=== PATIENT | male | born 1960 | race Caucasian/White ===

== ENCOUNTER 2023-09-20 09:03 | Observation (INO) ==
--- NOTE | 2023-08-22 09:31 | Anesthesiology Consultation ---
Date of Service August 22, 2023 Assessment & Plan (1) Encounter for pre-operative examination: Chart Review Chart Review: Acceptable Risk for Surgery and Patient seen in Pre Admission Testing Teaching & Discussion Pre-Anesthesia Teaching/Discussion Notes: Instructed NPO after midnight before surgery, except medications with 15 cc of water. Medication instructions provided according to the PAT guidelines. History Surgery Operation Date: 09/20/23 07:30 Proposed Procedures p Robotic Laparoscopic Assisted Partial Nephrectomy - Right, Possible Radical - Jermain Murray DO Height/Weight Height: 5 ft 7 in Weight: 94 kg Allergies Allergy/AdvReac Type Severity Reaction Status Date / Time No Known Allergies Allergy Unverified 08/15/23 08:03 Past Medical History Medical History (Updated 08/22/23 @ 09:58 by Yuliana Easley PA-C) Hypertension pt states with weight loss several yrs ago was deemed controlled and antihypertensives d/c by PCP Right renal mass History of kidney stones passed on own Patient denies h/o stroke, seizures, heart attack, heart failure, DM, blood clots/DVTs or blood transfusions. Exercise / Class Metabolic Activity II 4-5 Yardwork/Stairs/Walk up hill (denies chest discomfort or shortness of breath with 1 FOS) Past Surgical History Surgical History No pertinent past surgical history Past Anesthesia History No Family Hx of Anesthesia Complications History of PONV No Hx of Motion Sickness Social History Smoking Status: Never smoker Do You Dip or Chew Tobacco: No (quit in 03/2023) Hx Alcohol Use: Yes alcohol intake frequency: a few times a week Hx Substance Use: No Review of Systems Patient denies chest pain, shortness of breath, dyspnea on exertion, snoring, witnessed apneas, reflux, fever, chills, cough, wheezing, or palpitations. Physical Exam Vital Signs Vitals BP 161/101 automatic left arm; 158/98 manual left arm (Pt notes stress/anxiety regarding renal mass and surgery) P 82 TEMP 98.2 SP02 98% on RA RESP 17 Physical Patient resting comfortably in chair in no acute distress, alert and oriented, responding appropriately throughout visit Full cervical extension range of motion without pain TMD 3.5 finger breadths Mallampati Score 2 Dentition: chipped front lower tooth, denies loose teeth, caps/crowns, implants or bridges Lungs: normal respiratory effort. Good air movement, clear throughout to auscultation, no adventitious breath sounds Cardiac: regular rate and rhythm, no murmurs noted Carotid arteries: negative bruit bilat Lab Results Anesthesia Preop Results Results Anesthesia Widget: WBC 6.26 K/ul (4.8-10.8) 08/22/23 Hgb 16.5 g/dl (14.0-18.0) 08/22/23 Hct 49.1 % (42.0-52.0) 08/22/23 Plt 236 K/uL (130-400) 08/22/23 Na 140 mmol/L (136-145) 08/22/23 K 4.0 mmol/L (3.5-5.1) 08/22/23 Cl 106 mmol/L (98-107) 08/22/23 CO2 29 mmol/L (21-32) 08/22/23 BUN 12 mg/dl (6-23) 08/22/23 Creat 0.95 mg/dl (0.6-1.4) 08/22/23 Glucose Level 107 mg/dl (70-99(Fasting)) H 08/22/23 Blood Type B Positive 08/22/23 Antibody Screen NEGATIVE 08/22/23 Testing Electrocardiogram Date: 08/22/23 NSR, rate 78 bpm Chest X-Ray Date: 08/22/23 No acute chest disease Other Testing CT abdomen pelvis 04/26/23 Enhancing exophytic lesion from the posterior aspect of the mid right kidney consistent with malignancy. Recommend further evaluation. No other abdominal or pelvic mass, adenopathy or inflammatory change. No metastatic lesions are identified Nonspecific likely benign right renal cysts
[~2023-09-20 09:03] MED LIST: LACTATED RINGER'S 1,000 ML IV SCH; ceFAZolin 2000MG 2,000 MG/15 ML SYR IV SCH
--- NOTE | 2023-09-20 09:35 | History & Physical Report ---
Date of Service September 20, 2023 Assessment & Plan (1) Lesion of right [place] kidney: (2) Renal mass: Plan Patient with suspicious appearing right renal mass posteriorly with additional cyst on the kidneys. Extensive conversation in the office. Developed plan moving forward. Risks and benefits have been extensively reviewed and all questions answered. Risks and benefits reviewed/discussed at length for procedure. These include bleeding, infection, injury to surrounding tissues or organs, and risks associated with anesthesia. Patient states understanding and agrees to proceed. Will sign consent and proceed. Plan for right robot-assisted laparoscopic partial nephrectomy History of Present Illness Primary Care Provider: Pedrito Parker Patient here for procedure. No changes in medical issues. No major changes in urinary issues. Continued issues and concerns. No change in pain or discomfort. No severe fevers or chills. No chest pain or shortness of breath. Risks and benefits discussed at length for procedure. These include bleeding, infection, injury to surrounding tissues or organs, and risks associated with anesthesia. Patient and/or family states understanding and agrees to proceed. Consent and supporting information completed. Allergies Allergy/AdvReac Type Severity Reaction Status Date / Time No Known Allergies Allergy Unverified 09/20/23 09:20 Past Med/Surg History Medical History Hypertension pt states with weight loss several yrs ago was deemed controlled and antihypertensives d/c by PCP Right renal mass History of kidney stones passed on own Surgical History No pertinent past surgical history Social History Smoking Status: Never smoker Second Hand Exposure: No; Do You Dip or Chew Tobacco: No (quit in 03/2023); Tobacco Cessation Education Requested by Patient: No Hx Alcohol Use: Yes Hx Substance Use: No Preferred Language: Georgian Special Services Agent Required: No Beliefs That Will Affect Care: None Current Living Situation: Spouse Other Information That Helps Us Care for You: No Feels Safe at Home: Yes Safety Concerns: Feels Safe At This Time Review of Systems All systems reviewed & are unremarkable except as noted in HPI & below Physical Exam Physical Exam: General: Alert/Arousable. No Acute illness. . HEENT: Inspection normal. Normal inspection of face. Normal inspection of neck. Psychologic: Normal affect/No change in mentation. Respiratory: No use of accessory muscles. No respiratory changes or exacerbation or changes with tachypnea or dyspnea. Cardiovascular: No tachycardia Skin: [place] and Dry. No new rashes or visible lesions. Abdomen: Normal inspection. No guarding. PG Care Time/CCT Total # of Minutes Spent Total Time Spent with Patient: Total time spent is greater than 50% in coordination of care (as documented) at patient's floor/unit and/or counseling patient: Coding Level of Care Code None Diagnoses Lesion of right [place] kidney N28.9 Renal mass N28.89
[2023-09-20] MEDS ORDERED: ONDANSETRON INJ 2 MG/ML 2 ML VIAL ONE (11:46)
[2023-09-20] MEDS ORDERED: LIDOCAINE 2% 2 ML VIAL/AMP(20MG/ML) INFIL ONE (11:46)
[2023-09-20] MEDS ORDERED: fentaNYL citrate PF 100 MCG/2 ML VIAL ONE ×2 (11:46→18:17)
[2023-09-20] MEDS ORDERED: ROCURONIUM BROMIDE 10 MG/ML 5 ML VIAL IV ONE ×2 (11:46→15:24)
[2023-09-20] MEDS ORDERED: MIDAZOLAM HCL 1 MG/ML 2ML VIAL ONE (11:46)
[2023-09-20] MEDS ORDERED: PROPOFOL IV EMULSION 10 MG/ML 20 ML VIAL IV ONE (11:46)
[2023-09-20] MEDS ORDERED: ACETAMINOPHEN 1000 MG/100 ML IV IV ONE (13:34)
[2023-09-20] MEDS ORDERED: BUPIVACAINE 0.5 % 5 MG/1 ML MPF 30ML VIAL ONE (13:39)
[2023-09-20] MEDS ORDERED: HYDROmorphone INJ 2 MG/ML SYR/VIAL ONE (13:40)
[2023-09-20] MEDS ORDERED: DEXAMETHASONE SOD INJ 4 MG/ML VIAL ONE (13:40)
[2023-09-20] MEDS ORDERED: PHENYLEPHRINE 100MCG/ML 10ML SYR IV ONE (13:51)
[2023-09-20] MEDS ORDERED: VASOPRESSIN 20 UNIT/ML VIAL ONE (13:51)
[2023-09-20] MEDS ORDERED: SURGICEL ABSORB HEMOSTAT 2IN X 14IN TOP ONE (14:46)
[2023-09-20] MEDS ORDERED: TISSEEL FIBRIN SEALANT 10ML TOP ONE (14:46)
[2023-09-20] MEDS ORDERED: PHENYLEPHRINE HCL 10 MG/ML VIAL ONE ×2 (14:46→16:43)
[2023-09-20] MEDS ORDERED: FLOSEAL HEMOSTATIC MATRIX 10ML TOP ONE (14:46)
[2023-09-20] MEDS ORDERED: ALBUMIN HUMAN 5% 12.5 GM/250 ML VIAL IV ONE (16:15)
[2023-09-20] MEDS ORDERED: ePHEDrine sulfate 50 MG/5 ML SYR ONE (16:41)
[2023-09-20] MEDS ORDERED: ceFAZolin 330 MG/ML 1 GM VIAL ONE (16:44)
[2023-09-20] MEDS ORDERED: SUGAMMADEX SODIUM 200 MG/2 ML VIAL IV ONE (17:24)
[2023-09-20 17:33] LABS: iSTAT Hemoglobin 13.3 g/dl (14.0-18.0); iSTAT Ionized Calcium 1.1 mmol/l (1.12-1.32)
--- NOTE | 2023-09-20 17:33 | Post Operative Brief Note ---
PG Immediate Post Op with CF Date of Surgery September 20, 2023 Pre & Post Diagnosis Operation Date: 09/20/23 10:50 Pre-Op Diagnosis: Right Renal Mass Post-Op Diagnosis: Right Renal Mass I identified the patient and participated in the time-out.: Yes Procedure Operation Date: 09/20/23 10:50 Actual Procedures p Robotic Assisted Laparoscopic Right Partial Nephrectomy(Right) - Jermain Murray, Surgeon Jermain Murray, II, DO Records Management Coordinator Arsen VIVAS and Clara LEBRON Estimated Blood Loss 1,000 Findings Consistent with Post-Op Diagnosis Posterior exophytic mass of kidney. Extensive adhesions of small and large bowel to side wall. Specimens Specimen Description: A. Right renal mass Drains Denson Catheter and Adam-Alarcon Drain (10mm flat) Anesthesia Type General Complications none Disposition Disposition: Recovery Room
[2023-09-20] MEDS ORDERED: ceFAZolin 2000MG 2,000 MG/15 ML SYR IV ONE (17:43)
--- NOTE | 2023-09-20 17:54 | Operative Report ---
PG Post Operative Report Pre & Post Diagnosis Operation Date: 09/20/23 10:50 Pre-Op Diagnosis: Right Renal Mass Post-Op Diagnosis: Right Renal Mass I identified the patient and participated in the time-out.: Yes Procedure Operation Date: 09/20/23 10:50 Actual Procedures p Robotic Assisted Laparoscopic Right Partial Nephrectomy(Right) Extensive lysis of adhesions- Jermain Murray, Surgeon Jermain Murray, II, DO [place]yer [place] Slabs Arsen VIVAS and Clara LEBRON Estimated Blood Loss 1,000 Findings Consistent with Post-Op Diagnosis Posterior Exophytic Mid pole renal mass. Extensive adhesions of the right lateral wall. Numerous attachments from the small bowel and large bowel to the lateral wall. Significant adhesions of the liver to the peritoneum Specimens Right renal mass Drains 9 Fr Saul drain 18 Fr Denson Anesthesia Type General Complications none Disposition Disposition: Recovery Room Indications Patient with right renal mass suspicious for malignancy. Risks and benefits discussed at length. Description of Procedure The patient was brought to the operative suite and placed under general endotracheal intubation anesthesia in the supine position. The patient was transferred to lateral position with the right flank exposed. The patient was placed into a flex'ed position and then placed into mild reverse Trendelenberg. At this point, the patient prepped and draped in the usual sterile fashion and a timeout was completed. Preoperative weight based antibiotics had been given. CHESTER's and SCD's were placed on the patient's lower extremities. A catheter was placed by nursing using sterile technique. With the time out completed the patient was flexed and the skin was marked. The paramedian port site was anesthetized. A small incision was made into the skin and subcutaneous tissues. A Varess needle was selected and placed. The needle was easily moved and it was irrigated and aspirated without any issues or concerns for placement. Insufflation commenced. The 8 mm robotic port was placed. The abdominal cavity was further insufflated. The laparoscopic camera was placed and the abdominal cavity inspected. No concerning features were noted. At this point, the skin was marked for port placement and 8mm working ports were placed. The skin was anesthetized down to fascia and an approx 1cm incision was made to place the 2 x 8mm ports. A 12 mm and a 5 mm land surveyor assistant port were also placed in similar fashion under direct visualization. The robot was positioned and docked. The camera was placed and all trocars were positioned under direct visualization. ORTEGA Barajas was integral in port placement, camera utilization, and docking procedure. She also assisted during the extensive lysis of adhesions. She remained in sterile attire and then proceeded to assist the remainder of the case. Numerous areas of small bowel attachments to the anterior and lateral wall were noted. These were thin and easily dissected using blunt and sharp technique. Care was taken to monitor the bowel throughout the lysis of adhesions. The colon was mobilized medially to expose the retroperitoneum and the area assessed. Adhesions were freed to allow mobilization. A significant amount of further adhesions were noted from the colon and were freed. These were dissected with blunt technique. The liver was also found to have numerous areas of adhesions especially posteriorly on the underside of the liver to the peritoneum over top of the kidney. Cautery was used to assist dissection and control bleeding. The retroperitoneal fat was assessed. Starting distally the retroperitoneum was dissected and care was taken to dissect down near the IVC. The gonadal vein and ureter were identified. This was then followed superiorly. Dissection stayed toward the midline along the IVC and the ureter and gonadal vein were followed up towards the renal hilum. The dissection was followed to the renal pelvis. The Renal Vein was identified and exposed. Dissection was taken further superior. The Renal Artery and Vein were then cleaned and exposed. Clamp placement was assessed and good access was achieved. The perirenal fat anterior to the kidney was then dissected. The kidney required significant exposure in order to access the mass on the posterior portion of the kidney. The mass was found in the midpole with close proximity to the renal hilum especially the renal pelvis. Extensive dissection was necessary. The kidney need to be turned on its access in order to access the posterior portion where the mass was located. A accessory vessel was noted traveling towards the mass on the posterior aspect. 2 Weck clips and an additional Weck clip were placed in order to ligate the vessel. The mass and surrounding tissues were exposed. The kidney was then further mobilized. The ultrasound probe was placed and the mass further examined. The edges were marked. At this point, Dr. Elizabeth scrubbed to the case to assistant child care teacher. He assisted with the remaining portions of the procedure until closure of the kidney. The Vessels were assessed a final time. A bulldog clamp was placed on the artery and then on the vein. The kidney appropriately blanched. The previously marked margins were used to start the incision into the kidney. The mass was completely excised without evidence of penetrating into the capsule of the mass. Due to the difficulty with access and having to turn the kidney on its side in order to access the location there was some bleeding that occurred during the dissection of the mass. The clamp placement was likely hindered by the repositioning of the kidney. The base of resection bed was assessed and small vessels were cauterized. A barbed suture was selected and the nephrotomy closed. Care was taken to close the collecting system opening. 3-0 Vicryl sutures were then used to close the edges of the elliptical opening. 2 Vicryl sutures were used to close and bolster the edges. At this point, the bulldog clamps were removed. Warm ischemia time, in total, was 11 minutes and 3 seconds. The kidney was full assessed after removal of clamps. No bleeding or other major areas of concern. Weck and Hemolock clips were used to bolster and tightened to approximate the edges. Surgicel hemostatic agent sheets were placed over the vessels and on the incised edge. Hemostatic agents Tisseel and Floseal were also placed. Hemostatic agent was also placed on the vessels. No major bleeding or other issues. Gerota's tissues were replaced utilizing an additional 3-0 Vicryl suture and wet clips to cover the area. The excised mass was placed in an endocatch bag for removal. A Flat drain was placed through the inferior robotic port and the port was removed. It was positioned in the gutter lateral to the liver and colon. This was secured with a silk 1-0 suture. The entire dissection space was inspected one final time. No bleeding or injuries or areas of concern were noted. No tumor or other concerning features were noted. At this point, the robot was undocked and moved away from the patient. The port sites were all assessed laparoscopically. The endoscopic bag was within the 12 mm land surveyor assistant port in the midline position.The other ports were assessed and no issues observed. The land surveyor assistant port was opened further exposing fascia which was then opened in order to removed the mass within the bag. A 1-0 PDS suture was used to close fascia. The skin at each site was closed with a stapling device. The area was cleaned and bandages placed on each incision. The patient was cleaned and bandaged. The patient was moved back into the supine position The patient was cleaned, aroused from anesthesia, and transferred to the pacu in stable condition having tolerated the procedure well with no complications. I was present and participated in all aspects of the procedure. ORTEGA Candelario was critical in assisting for the entire case. Dr. Elizabeth assisted during the removal of the mass and closure of the kidney as well as the clamping of the vessels in the portions as mentioned above. Patient will be observed overnight. A H&H had been checked during the case and patient's count was over 13. Will plan to monitor closely with catheter and JOSÉ drain in place. I attest to the content of the Intraoperative Record and any orders documented therein. Any exceptions are noted below.
[2023-09-20] MEDS ORDERED: FLUMAZENIL 0.1 MG/1 ML 10 ML VIAL IV PRN (18:12)
[2023-09-20] MEDS ORDERED: HYDROmorphone INJ 1 MG/ML SYRINGE IV PRN (18:12)
[2023-09-20] MEDS ORDERED: LABETALOL HCL IV 5 MG/ML 20ML IV PRN (18:12)
[2023-09-20] MEDS ORDERED: ATROPINE SULFATE 0.1 MG/ML 10ML SYR IV PRN (18:12)
[2023-09-20] MEDS ORDERED: PROMETHAZINE HCL 12.5 MG in SODIUM CHLORIDE 0.9% 50 ML IV PRN (18:12)
[2023-09-20] MEDS ORDERED: ONDANSETRON INJ 2 MG/ML 2 ML VIAL IV PRN ×2 (18:12→19:22)
[2023-09-20] MEDS ORDERED: NALOXONE HCL 0.4 MG/1 ML VIAL/CARP IV PRN (18:12)
[2023-09-20] MEDS ORDERED: ePHEDrine sulfate 50 MG/ML AMP IV PRN (18:12)
[2023-09-20] MEDS: fentaNYL citrate PF 100 MCG/2 ML VIAL IV PRN ×4 (18:18→18:34)
[2023-09-20 18:21] LABS: Hematocrit (blood only) 35.7 % (42.0-52.0); Hemoglobin 12.1 g/dl (14.0-18.0); Mean Corpuscular Hemoglobin 28.2 pg (25.0-34.0); Mean Corpuscular Hgb Conc 33.9 g/dL (32.0-36.0); Mean Corpuscular Volume 83.2 fL (80.0-100.0); Mean Platelet Volume 10.5 fL (9.4-12.4); Platelet Count 242 K/uL (130-400); RDW Coefficient of Variation 12.9 % (11.5-14.5); RDW Standard Deviation 39.3 fL (36.4-46.3); Red Blood Count 4.29 M/uL (4.70-6.10); White Blood Count 19.46 K/ul (4.8-10.8)
[2023-09-20 18:37] LABS: Calcium 7.7 mg/dl (8.6-10.3); Creatinine Clr Calc Pharmacy 76.7 ml/min; Est GFR (African American) 84.8 ml/min; Est GFR (Non-African American) 73.2 ml/min; Potassium 3.9 mmol/L (3.5-5.1)
[2023-09-20 18:39] LABS: Basophils % (auto) 0.5 %; Immature Granulocytes # (auto) 0.11 K/uL (0.01-0.20); Immature Granulocytes % (auto) 0.6 %; Lymphocytes % (auto) 4.6 %; Monocytes # (auto) 0.39 K/uL (0.11-0.59); Neutrophils # (auto) 17.96 K/uL (1.40-6.50); Neutrophils % (auto) 92.3 %
--- NOTE | 2023-09-20 18:41 | Anesthesiology Progress Note ---
Date of Service September 20, 2023 Anesthesia Post Procedure Vital Signs Vital Signs: Temp Pulse Pulse Resp BP Pulse Ox O2 Del Method 09/20/23 18:30 36.5 C 96 H 16 113/86 97 Room Air 09/20/23 18:20 36.5 C 94 H 15 120/79 96 Room Air 09/20/23 18:10 95 H 15 113/73 96 Room Air 09/20/23 18:00 94 H 12 109/80 96 Room Air 09/20/23 17:50 91 H 12 116/88 100 Room Air 09/20/23 17:42 35.7 C L 96 H 15 111/73 98 Oxymask 09/20/23 09:21 36.7 C 92 H 18 175/104 H 98 Room Air O2 Flow Rate 09/20/23 18:30 0 09/20/23 18:20 0 09/20/23 18:10 0 09/20/23 18:00 0 09/20/23 17:50 0 09/20/23 17:42 6 09/20/23 09:21 Pain Intensity Abdomen: Pain Intensity: 4 Transfer of Care Handoff Completed per policy Notes Mental Status: alert / awake / arousable Patient Amnestic to Procedure: Yes Nausea / Vomiting: adequately controlled Pain: adequately controlled Airway Patency, RR, SpO2: stable & adequate BP & HR: stable & adequate Hydration State: stable & adequate Anesthetic Complications: no major complications apparent
[2023-09-20] MEDS ORDERED: MoRPHine SULFATE 2 MG/ML CARP IV PRN (19:22)
[2023-09-20] MEDS ORDERED: ACETAMINOPHEN 325 MG TAB PO PRN (19:22)
[2023-09-20] MEDS: MoRPHine SULFATE 4 MG/ML 1 ML CARP\\VIAL IV PRN ×2 (19:37→22:34)
[2023-09-20] MEDS: LACTATED RINGER'S 1,000 ML IV SCH (19:42)
[2023-09-20 20:12] LABS: Hematocrit (blood only) 36.9 % (42.0-52.0); Hemoglobin 12.2 g/dl (14.0-18.0); Mean Corpuscular Hemoglobin 28.2 pg (25.0-34.0); Mean Corpuscular Hgb Conc 33.1 g/dL (32.0-36.0); Mean Corpuscular Volume 85.4 fL (80.0-100.0); Mean Platelet Volume 10.7 fL (9.4-12.4); Platelet Count 257 K/uL (130-400); RDW Coefficient of Variation 12.7 % (11.5-14.5); RDW Standard Deviation 39.8 fL (36.4-46.3); Red Blood Count 4.32 M/uL (4.70-6.10); White Blood Count 19.55 K/ul (4.8-10.8)
[2023-09-20 20:30] LABS: BUN Creatinine Ratio 11.5 (10-20); Calcium 7.9 mg/dl (8.6-10.3); Creatinine Clr Calc Pharmacy 67.9 ml/min; Est GFR (African American) 73.2 ml/min; Est GFR (Non-African American) 63.1 ml/min; Potassium 4.3 mmol/L (3.5-5.1)
[2023-09-20 20:34] LABS: Basophils # (auto) 0.09 K/uL (0.00-0.20); Basophils % (auto) 0.5 %; Immature Granulocytes # (auto) 0.17 K/uL (0.01-0.20); Immature Granulocytes % (auto) 0.9 %; Lymphocytes # (auto) 0.55 K/uL (1.20-3.40); Lymphocytes % (auto) 2.8 %; Monocytes # (auto) 0.36 K/uL (0.11-0.59); Monocytes % (auto) 1.8 %; Neutrophils # (auto) 18.38 K/uL (1.40-6.50)
[2023-09-20] MEDS: oxyCODONE HCL IR 5 MG TAB (IMMEDIATE RELEASE) PO PRN (21:32)
[2023-09-20] MEDS: DOCUSATE SODIUM 100 MG CAP PO SCH (21:34)
[2023-09-20] MEDS: ceFAZolin 2000MG 2,000 MG/15 ML SYR IV SCH (21:34)
[2023-09-21 00:03] LABS: Hematocrit (blood only) 35.7 % (42.0-52.0); Hemoglobin 11.7 g/dl (14.0-18.0); Mean Corpuscular Hgb Conc 32.8 g/dL (32.0-36.0); Mean Corpuscular Volume 85.4 fL (80.0-100.0); Mean Platelet Volume 10.2 fL (9.4-12.4); Platelet Count 211 K/uL (130-400); RDW Coefficient of Variation 12.8 % (11.5-14.5); RDW Standard Deviation 39.7 fL (36.4-46.3); Red Blood Count 4.18 M/uL (4.70-6.10); White Blood Count 14.07 K/ul (4.8-10.8)
[2023-09-21 00:25] LABS: BUN Creatinine Ratio 11.4 (10-20); Calcium 8.4 mg/dl (8.6-10.3); Creatinine Clr Calc Pharmacy 59.1 ml/min; Est GFR (Non-African American) 53.5 ml/min; Potassium 5.5 mmol/L (3.5-5.1)
[2023-09-21] MEDS: MoRPHine SULFATE 2 MG/ML CARP IV PRN ×4 (02:23→18:05)
[2023-09-21] MEDS: ceFAZolin 2000MG 2,000 MG/15 ML SYR IV SCH (04:07)
[2023-09-21] MEDS: oxyCODONE HCL IR 5 MG TAB (IMMEDIATE RELEASE) PO PRN ×2 (04:07→10:23)
[2023-09-21] MEDS: LACTATED RINGER'S 1,000 ML IV SCH ×2 (05:42→15:42)
[2023-09-21 06:27] LABS: Basophils # (auto) 0.02 K/uL (0.00-0.20); Basophils % (auto) 0.2 %; Hematocrit (blood only) 33.4 % (42.0-52.0); Immature Granulocytes # (auto) 0.05 K/uL (0.01-0.20); Immature Granulocytes % (auto) 0.4 %; Lymphocytes # (auto) 0.58 K/uL (1.20-3.40); Lymphocytes % (auto) 4.9 %; Mean Corpuscular Hgb Conc 32.9 g/dL (32.0-36.0); Mean Platelet Volume 10.9 fL (9.4-12.4); Monocytes # (auto) 0.58 K/uL (0.11-0.59); Monocytes % (auto) 4.9 %; Neutrophils # (auto) 10.65 K/uL (1.40-6.50); Neutrophils % (auto) 89.6 %; Platelet Count 231 K/uL (130-400); RDW Coefficient of Variation 12.8 % (11.5-14.5); RDW Standard Deviation 39.7 fL (36.4-46.3); Red Blood Count 3.93 M/uL (4.70-6.10); White Blood Count 11.88 K/ul (4.8-10.8)
[2023-09-21 07:16] LABS: BUN Creatinine Ratio 12.8 (10-20); Calcium 8.4 mg/dl (8.6-10.3); Creatinine Clr Calc Pharmacy 62.2 ml/min; Est GFR (African American) 65.9 ml/min; Est GFR (Non-African American) 56.9 ml/min; Potassium 4.7 mmol/L (3.5-5.1)
[2023-09-21] MEDS: DOCUSATE SODIUM 100 MG CAP PO SCH ×2 (08:27→21:53)
--- NOTE | 2023-09-21 09:30 | Urology Progress Note ---
Date of Service September 21, 2023 Assessment & Plan (1) Renal mass: Plan 62yo M with a right renal mass suspicious for malignancy admitted to urology service s/p robotic partial nephrectomy - POD #1 s/p Robotic Assisted Laparoscopic Right Partial Nephrectomy with Extensive lysis of adhesions with Dr. Murray. - Doing well, progressing as expected. - Afebrile and hemodynamically stable. - Labs today reviewed - WBC 11.88, Hemoglobin 11.0, Creatinine 1.33. - Denson draining appropriately - urine is clear yellow. - JOSÉ with approx 30ml serosanguineous drainage this morning. Plan- - Advance diet as tolerated. - Remove Denson catheter and monitor for void. - Maintain JOSÉ drain. - Encourage OOB/ambulation. - Continue supportive care and pain management as needed. - Anticipate discharge home later today or tomorrow pending patient progression. Admission and Anticipated Discharge Date Admission Date: September 20, 2023 Subjective Pt examined at bedside this AM. Awake, resting in bed on arrival. No acute distress. Reports moderate abdominal discomfort, managing with medication. Tolerating clear liquid diet. No fevers, chills, nausea, or vomiting. Denson draining clear yellow urine. JOSÉ with serosanguineous drainage. Output overnight 70ml. Incisions appropriate, dusty intact. +Belching. Review of Systems Constitutional: as per Subjective / HPI Gastrointestinal: as per Subjective / HPI Genitourinary: + as per Subjective / HPI Physical Exam Constitutional: no acute distress Respiratory: no respiratory distress and no labored breathing Gastrointestinal (Abdomen): Percussion/Palpation: abdomen soft; abdomen nontender Incisions appropriate, dusty intact. JOSÉ drain intact with serosanguineous drainage Musculoskeletal: Head/Neck/Chest: normocephalic Skin: No visible rashes or lesions to exposed skin areas Neurologic: moves all extremities and awake Psychiatric: A+Ox3, euthymic affect Genitourinary: Denson draining clear yellow urine Results & Data Vital Signs (Past 12 Hours) Vital Signs Temp Pulse Pulse Resp BP Pulse Ox O2 Del Method 09/21/23 07:17 36.9 C 98 H 18 115/74 98 Room Air 09/21/23 02:37 37 C 90 20 115/75 99 Nasal Cannula 09/20/23 22:34 36.7 C 90 20 113/73 98 Nasal Cannula 09/20/23 21:25 36.6 C 93 H 18 103/69 97 Nasal Cannula O2 Flow Rate 09/21/23 07:17 09/21/23 02:37 2 09/20/23 22:34 2 09/20/23 21:25 2 PG Care Time/CCT Total # of Minutes Spent Total Time Spent with Patient: Total time spent is greater than 50% in coordination of care (as documented) at patient's floor/unit and/or counseling patient: Coding Level of Care Code None Diagnoses Renal mass N28.89
[2023-09-21 11:50] LABS: Basophils # (auto) 0.02 K/uL (0.00-0.20); Basophils % (auto) 0.2 %; Hematocrit (blood only) 32.1 % (42.0-52.0); Hemoglobin 10.7 g/dl (14.0-18.0); Immature Granulocytes # (auto) 0.05 K/uL (0.01-0.20); Immature Granulocytes % (auto) 0.4 %; Lymphocytes # (auto) 0.78 K/uL (1.20-3.40); Lymphocytes % (auto) 6.4 %; Mean Corpuscular Hgb Conc 33.3 g/dL (32.0-36.0); Mean Platelet Volume 10.8 fL (9.4-12.4); Monocytes # (auto) 0.72 K/uL (0.11-0.59); Monocytes % (auto) 5.9 %; Neutrophils # (auto) 10.71 K/uL (1.40-6.50); Neutrophils % (auto) 87.1 %; Platelet Count 228 K/uL (130-400); RDW Coefficient of Variation 13.1 % (11.5-14.5); Red Blood Count 3.82 M/uL (4.70-6.10); White Blood Count 12.28 K/ul (4.8-10.8)
[2023-09-21] MEDS ORDERED: CALCIUM CARBONATE 500 MG CHEWABLE TAB PO PRN ×2 (14:57→17:48)
[2023-09-21] MEDS: TAMSULOSIN HCL 0.4 MG CAP PO SCH (15:42)
[2023-09-22] MEDS: LACTATED RINGER'S 1,000 ML IV SCH (02:03)
[2023-09-22] MEDS: oxyCODONE HCL IR 5 MG TAB (IMMEDIATE RELEASE) PO PRN ×4 (05:09→22:57)
[2023-09-22 07:10] LABS: Basophils # (auto) 0.04 K/uL (0.00-0.20); Basophils % (auto) 0.4 %; Eosinophils # (auto) 0.02 K/uL (0.00-0.50); Eosinophils % (auto) 0.2 %; Hematocrit (blood only) 27.6 % (42.0-52.0); Hemoglobin 9.3 g/dl (14.0-18.0); Immature Granulocytes # (auto) 0.03 K/uL (0.01-0.20); Immature Granulocytes % (auto) 0.3 %; Lymphocytes # (auto) 0.58 K/uL (1.20-3.40); Lymphocytes % (auto) 6.4 %; Mean Corpuscular Hemoglobin 28.4 pg (25.0-34.0); Mean Corpuscular Hgb Conc 33.7 g/dL (32.0-36.0); Mean Corpuscular Volume 84.1 fL (80.0-100.0); Mean Platelet Volume 10.6 fL (9.4-12.4); Monocytes # (auto) 0.51 K/uL (0.11-0.59); Monocytes % (auto) 5.7 %; Neutrophils # (auto) 7.83 K/uL (1.40-6.50); Platelet Count 185 K/uL (130-400); RDW Standard Deviation 39.8 fL (36.4-46.3); Red Blood Count 3.28 M/uL (4.70-6.10); White Blood Count 9.01 K/ul (4.8-10.8)
[2023-09-22] MEDS: DOCUSATE SODIUM 100 MG CAP PO SCH ×2 (07:31→20:02)
[2023-09-22 07:34] LABS: Calcium 8.4 mg/dl (8.6-10.3); Creatinine Clr Calc Pharmacy 76.7 ml/min; Est GFR (African American) 84.8 ml/min; Est GFR (Non-African American) 73.2 ml/min; Potassium 4.4 mmol/L (3.5-5.1)
[2023-09-22] MEDS: TAMSULOSIN HCL 0.4 MG CAP PO SCH (08:55)
--- NOTE | 2023-09-22 10:09 | Urology Progress Note ---
Date of Service September 22, 2023 Assessment & Plan (1) Renal mass: Plan 62yo M with a right renal mass suspicious for malignancy admitted to urology service s/p robotic partial nephrectomy - POD #2 s/p Robotic Assisted Laparoscopic Right Partial Nephrectomy with Extensive lysis of adhesions with Dr. Murray. - Improving. Issues with voiding yesterday after catheter removal. Started on tamsulosin. - Afebrile and hemodynamically stable. Mild tachycardia. Normal blood pressure without hypotension - Labs today reviewed - Hb 9.3 - No major increase in JOSÉ drainage. On IVF may be dilutional with ABLA from surgery on posterior mass White count down to 9.01. Cr down to 1.08 - JOSÉ with approx 20ml serosanguineous drainage per shift has been having some hypoxia +Flatus When off of oxygen. Has continued to need 2 L nasal cannula in order to maintain oxygen saturation. Currently 93 on 2 L/min NC but goes into the 80s while off oxygen. Has been working on incentive spirometer. Has been having abdominal pain which has limited deep breathing. May be contributing. Plan- - Continue diet as tolerated. - Plan to remove JOSÉ drain. - Encourage OOB/ambulation. - Continue supportive care and pain management as needed. Due to hypoxia we will plan to check EKG as well as chest x-ray. Likely postoperative pain contributing to decreased ventilation. Will continue to work on pain management as well as encouraging deep breathing and continued utilization of incentive spirometer. Will plan to have hospitalist consultation in order to reassess and rule out any major issues or long-term concerns. Will await results of imaging as well as EKG as well as encourage patient continue with incentive spirometry. Will hold IV fluids in order to avoid volume overload as patient is taking in adequate amounts of p.o. intake. No hypotension no signs of fever concerning for possible pneumonia/sepsis/severe anemia or other major concerning issues. Creatinine/renal function and urine output appear to be adequate at this point. Admission and Anticipated Discharge Date Admission Date: September 20, 2023 Subjective Postop from urologic surgery. Patient has been tolerating well, but is having some pain and discomfort. Incisions have been mild sore. Having some abdominal distension/gas pains. Has not had severe pain or uncontrollable pain. Patient has been ambulating. Has not had bowel movement or major change. No new nausea or vomiting. Had tolerated anesthesia without major problems Tolerated advancing diet postoperatively. No acute distress. JOSÉ with serosanguineous drainage. Output approx 20cc per shift Has been having heartburn/GERD Has required continued nasal cannula and oxygen for oxygen sat. Has been having some mild hypoxic episodes when off of oxygen. Has been having trouble with deep breaths due to abdominal pain. Has been working on splinting. He is continuing to utilize incentive spirometer. Review of Systems Review of Systems: All systems reviewed & are unremarkable except as noted in HPI & below Physical Exam Physical Exam: General: Alert in no acute distress. HEENT: Normocephalic Atraumatic. Inspection normal. Cranial Nerves 2-12 Grossly intact. Normal inspection of face. Normal inspection of neck. Psychologic: Normal affect. Respiratory: Nonlabored. No use of accessory muscles. No tachypnea or dyspnea. Cardiovascular: No tachycardia Skin: [place] and Dry. No rashes or visible lesions. Extremities/Lymphatics: No edema Abdomen: Appropriately tender. Mild distended. No rebound or guarding. Wound: Clean, dry, covered. Results & Data Vital Signs (Past 12 Hours) Vital Signs Temp Pulse Resp BP Pulse Ox O2 Del Method O2 Flow Rate 09/22/23 09:59 121 H 18 93 Nasal Cannula 2 09/22/23 09:58 121 H 18 88 L Room Air 09/22/23 09:40 116 H 95 Nasal Cannula 2 09/22/23 07:20 Nasal Cannula 2 09/22/23 07:14 108 H 91 Nasal Cannula 2 09/22/23 07:11 37.1 C 112 H 16 138/80 85 L Room Air 09/21/23 23:14 89 93 Nasal Cannula 2 09/21/23 23:11 37 C 110 H 20 147/85 H 90 Room Air PG Care Time/CCT Total # of Minutes Spent Total Time Spent with Patient: Total time spent is greater than 50% in coordination of care (as documented) at patient's floor/unit and/or counseling patient: Coding Level of Care Code 00048 SUB INP/OBS CARE 3/50MIN Diagnoses Renal mass N28.89
--- NOTE | 2023-09-22 11:20 | Hospitalist Consultation ---
Date of Consultation September 22, 2023 Assessment & Plan (1) Postoperative hypoxia: Suspect secondary to atelectasis Agree with holding further IV fluids Incentive spirometer q1h Encourage pain medication to take deep breaths Encourage patient to be out of bed Continue to wean O2 History of Present Illness Reason for Consultation: Mild Hypoxia post op needing O2 Attending Physician: Jermain Murray, II, DO History of Present Illness Elias Willis is a 62 year old male POD #2 Right Robotic Assisted Laparoscopic Right Partial Nephrectomy performed by Dr Murray. Estimated blood loss 1000ml. Complications - None. Medicine consulted for post operative hypoxia. He denies any history of lung disease, asthma, COPD, obstructive sleep apnea, history of PE/DVT. No history of heart attack or congestive heart failure. Notes he is not taking deep breaths due to pain and distension in his abdomen. No chest pain or shortness of breath. No nasal congestion, fever, chills, sinus pain, post nasal drip, cough. Allergies Allergy/AdvReac Type Severity Reaction Status Date / Time No Known Allergies Allergy Unverified 09/20/23 09:20 Home Medications Medication Instructions Recorded Confirmed Type cephalexin 500 mg capsule 500 mg PO BID 5 days #10 caps 09/21/23 Rx docusate sodium 100 mg capsule 100 mg PO BID #30 caps 09/21/23 Rx (Colace) oxycodone-acetaminophen 5 mg-325 1 tab PO Q8H PRN pain #10 tabs 09/21/23 Rx mg tablet (Percocet) Patient History Medical History Hypertension pt states with weight loss several yrs ago was deemed controlled and antihypertensives d/c by PCP Right renal mass History of kidney stones passed on own Surgical History No pertinent past surgical history Social History Smoking Status: Never smoker Second Hand Exposure: No; Do You Dip or Chew Tobacco: No (quit in 03/2023); Tobacco Cessation Education Requested by Patient: No Hx Alcohol Use: Yes Hx Substance Use: No Preferred Language: Bhutanese Communication Ability: Effective Flower Stripper Required: No Beliefs That Will Affect Care: None Current Living Situation: Spouse Other Information That Helps Us Care for You: No Feels Safe at Home: Yes Safety Concerns: Feels Safe At This Time Assistive Devices: None Review of Systems Review of Systems: All systems reviewed & are unremarkable except as noted in HPI & below Physical Exam Constitutional: WD/WN, vitals as above Respiratory: normal respiratory effort; no respiratory distress Auscultation: + diminished lung sounds (bibasal); no crackles, no rhonchi and no wheezes Cardiovascular: Rate/Rhythm: regular rhythm and + tachycardic Heart Sounds: no murmur Extremities: normal capillary refill; no calf tenderness and no pedal edema Gastrointestinal (Abdomen): Inspection/Auscultation: + abdomen distended Percussion/Palpation: + abdomen tender (right sided) and abdomen soft; no guarding and abdomen not rigid Musculoskeletal: no cyanosis or clubbing, extremities motor strength 5/5 Skin: no rashes, warm and dry Neurologic: moves all extremities and awake; not confused Psychiatric: A+Ox3, euthymic affect Results & Data Results & Data Vital Signs (Past 12 Hours) Vital Signs Temp Pulse Resp BP Pulse Ox O2 Del Method O2 Flow Rate 09/22/23 09:59 121 H 18 93 Nasal Cannula 2 09/22/23 09:58 121 H 18 88 L Room Air 09/22/23 09:40 116 H 95 Nasal Cannula 2 09/22/23 07:20 Nasal Cannula 2 09/22/23 07:14 108 H 91 Nasal Cannula 2 09/22/23 07:11 37.1 C 112 H 16 138/80 85 L Room Air Diagnostic Findings TWO VIEW CHEST CLINICAL HISTORY: Hypoxia. FINDINGS: PA and lateral chest radiographs are compared to study dated 08/22/2023. The cardiomediastinal silhouette is unremarkable. There are low lung volumes with dependent atelectasis. No air space consolidation typical for pneumonia or pleural effusion is identified There is no pneumothorax. The bony thorax appears intact. A surgical drain and skin clips are noted in the right upper quadrant. There is trace free air suggested below the diaphragm. IMPRESSION: 1. Low lung volumes with dependent atelectasis. 2. No airspace consolidation typical for pneumonia or pleural effusion is identified. 3. Postsurgical change is seen in the right upper quadrant and trace intraperitoneal free air is suspected. Correlate clinically. ECG Rate (beats per minute): 117 Rhythm: sinus tachycardia Findings: no acute ischemic change Comparison ECG Date: from (August 22, 2023) Change: the following changes noted (Increased rate) PG Care Time/CCT Total # of Minutes Spent Total Time Spent with Patient: Total time spent is greater than 50% in coordination of care (as documented) at patient's floor/unit and/or counseling patient: Coding Level of Care Code 31889 IN/OBS CONSULT LVL 3,45M Diagnoses Postoperative hypoxia R09.02; Z98.890
--- NOTE | 2023-09-22 12:10 | XRay Report ---
TWO VIEW CHEST CLINICAL HISTORY: Hypoxia. FINDINGS: PA and lateral chest radiographs are compared to study dated 08/22/2023. The cardiomediasti nal silhouette is unremarkable. There are low lung volumes with dependent atelectasis. No air space c onsolidation typical for pneumonia or pleural effusion is identified There is no pneumothorax. The [place] thorax appears intact. A surgical drain and skin clips are noted in the right upper quadrant. Ther e is trace free air suggested below the diaphragm. IMPRESSION: 1. Low lung volumes with dependent atelectasis. 2. No airspace consolidation typical for pneumonia or pleural effusion is identified. 3. Postsurgical change is seen in the right upper quadrant and trace intraperitoneal free air is susp ected. Correlate clinically. ACT 112: Negative or not required by law. Electronically signed by: Rigo Cobian M.D. 09/22/2023 12:08 PM
[2023-09-23] MEDS: oxyCODONE HCL IR 5 MG TAB (IMMEDIATE RELEASE) PO PRN ×5 (03:17→23:30)
[2023-09-23 06:22] LABS: Basophils # (auto) 0.04 K/uL (0.00-0.20); Basophils % (auto) 0.4 %; Eosinophils # (auto) 0.04 K/uL (0.00-0.50); Eosinophils % (auto) 0.4 %; Hematocrit (blood only) 26.8 % (42.0-52.0); Hemoglobin 8.9 g/dl (14.0-18.0); Immature Granulocytes # (auto) 0.03 K/uL (0.01-0.20); Immature Granulocytes % (auto) 0.3 %; Lymphocytes # (auto) 0.77 K/uL (1.20-3.40); Lymphocytes % (auto) 8.1 %; Mean Corpuscular Hemoglobin 27.9 pg (25.0-34.0); Mean Corpuscular Hgb Conc 33.2 g/dL (32.0-36.0); Mean Platelet Volume 10.8 fL (9.4-12.4); Monocytes # (auto) 0.56 K/uL (0.11-0.59); Monocytes % (auto) 5.9 %; Neutrophils # (auto) 8.05 K/uL (1.40-6.50); Neutrophils % (auto) 84.9 %; Platelet Count 187 K/uL (130-400); RDW Coefficient of Variation 12.7 % (11.5-14.5); RDW Standard Deviation 38.9 fL (36.4-46.3); Red Blood Count 3.19 M/uL (4.70-6.10); White Blood Count 9.49 K/ul (4.8-10.8)
[2023-09-23 06:44] LABS: BUN Creatinine Ratio 10.9 (10-20); Calcium 8.5 mg/dl (8.6-10.3); Est GFR (Non-African American) 79.3 ml/min; Potassium 4.2 mmol/L (3.5-5.1)
[2023-09-23] MEDS: TAMSULOSIN HCL 0.4 MG CAP PO SCH (08:04)
[2023-09-23] MEDS: DOCUSATE SODIUM 100 MG CAP PO SCH ×2 (08:05→20:48)
--- NOTE | 2023-09-23 11:09 | XRay Report ---
TWO VIEW CHEST CLINICAL HISTORY: Hypoxia. FINDINGS: PA and lateral chest radiographs are compared to study dated 09/22/2023. The cardiomediasti nal silhouette is unremarkable. There are low lung volumes with dependent atelectasis. Trace pleural effusions are noted. There is no airspace consolidation typical for pneumonia There is no pneumothora x. The bony thorax appears intact. Skin clips project over the upper abdomen. The surgical drain has been removed. There is likely trace residual pneumoperitoneum. IMPRESSION: 1. Low lung volumes with dependent atelectasis. 2. Trace pleural effusions are seen in the lateral view. 3. Postsurgical change is seen in the upper abdomen and there is likely trace residual pneumoperitone um.. ACT 112: Negative or not required by law. Electronically signed by: Rigo Cobian M.D. 09/23/2023 11:07 AM
--- NOTE | 2023-09-23 11:31 | Urology Progress Note ---
Date of Service September 23, 2023 Assessment & Plan (1) Renal mass: (2) Postoperative hypoxia: Plan 62yo M with a right renal mass suspicious for malignancy admitted to urology service s/p robotic partial nephrectomy - POD #3 s/p Robotic Assisted Laparoscopic Right Partial Nephrectomy with Extensive lysis of adhesions with Dr. Murray. - Improving. Voiding improved. Mild discomfort. Started on tamsulosin. - Afebrile and hemodynamically stable. Mild tachycardia. Normal blood pressure without hypotension. EKG and Chest xray yesterday. - Labs today reviewed - Hb with mild drop again - No major increase in JOSÉ drainage. JOSÉ removed this AM. Did have some volume overload and since stopped on IVF. Likely some ABLA from surgery on posterior mass Cr down to 1.01 - JOSÉ with approx 50 ml serosanguineous drainage over 24 hours. Ordered removal this am. Working on deep breathing and splinting for discomfort with deep breath. Atelectasis. Weaning off nasal cannula Has been working on incentive spirometer. Has been having abdominal pain which has limited deep breathing. May be contributing. Plan- - Continue diet as tolerated. - DC JOSÉ - Encourage OOB/ambulation. - Continue supportive care and pain management as needed. Creatinine/renal function and urine output appear to be adequate at this point. Monitor for continued issues. Patient underwent CTA of the chest today. Did not show signs of major embolism or considerable abnormality. Patient had been monitoring. Had a possible fever earlier in the day but on repeat assessment did not have fever. Continues to have mild tachycardia. Requires nasal cannula to maintain sats. Presumed atelectasis. Will plan to continue with close monitoring. Admission and Anticipated Discharge Date Admission Date: September 20, 2023 Subjective Postop from urologic surgery. Issues with de-sat yesterday and mildly overnight. Fluids held yesterday as patient doing well with PO intake. Voiding issues resolved. Continues to have flatus. GI discomfort and heart burn improved. Chest xray showing atelectases yesterday. Post surg changes. EkG mild tachycardia. Incisions have been mild sore. Having some abdominal distension/gas pains. Has not had severe pain or uncontrollable pain. Patient has been ambulating. Has not had bowel movement or major change. No new nausea or vomiting. Had tolerated anesthesia without major problems Tolerated advancing diet postoperatively. No acute distress. JOSÉ with serosanguineous drainage. approx 50 cc over 24 hours. Removal ordered this AM. Attempting to wean off O2. Having trouble with deep breathing due to discomfort. Working on pain control. Has used low narcotic intake. Has been working on splinting. He is continuing to utilize incentive spirometer. Review of Systems Review of Systems: All systems reviewed & are unremarkable except as noted in HPI & below Physical Exam Physical Exam: General: Alert in no acute distress. HEENT: Normocephalic Atraumatic. Inspection normal. Cranial Nerves 2-12 Grossly intact. Normal inspection of face. Normal inspection of neck. Psychologic: Normal affect. Respiratory: Nonlabored. No use of accessory muscles. No tachypnea or dyspnea. Cardiovascular: No tachycardia Skin: [place] and Dry. No rashes or visible lesions. Extremities/Lymphatics: No edema Abdomen: Appropriately tender. Moderately distended. No rebound or guarding. Wound: Clean, dry, covered. Results & Data Vital Signs (Past 12 Hours) Vital Signs Temp Pulse Resp BP Pulse Ox O2 Del Method O2 Flow Rate 09/23/23 08:11 Nasal Cannula 1 09/23/23 06:22 36.9 C 105 H 20 143/77 H 96 Nasal Cannula 2 PG Care Time/CCT Total # of Minutes Spent Total Time Spent with Patient: Total time spent is greater than 50% in coordination of care (as documented) at patient's floor/unit and/or counseling patient: Coding Level of Care Code 24702 SUB INP/OBS CARE 3/50MIN Diagnoses Renal mass N28.89 Postoperative hypoxia R09.02; Z98.890
[2023-09-23] MEDS ORDERED: OPTIRAY 320 125ml IV ONE (13:14)
--- NOTE | 2023-09-23 14:06 | CT Scan Report ---
CT ANGIOGRAM OF THE CHEST CLINICAL HISTORY: Hypoxia. COMPARISON STUDY: Chest x-ray dated 09/23/2023. TECHNIQUE: Following the IV administration of 114 cc of Optiray 320, CT angiogram of the chest was pe rformed from the upper abdomen to the thoracic inlet utilizing the pulmonary embolus protocol. Images are reviewed in the axial, sagittal, and coronal planes. 3-D MIPS images are created and assessed. I V contrast was administered without complication. A dose lowering technique was utilized adhering to the principles of ALARA. The examination is significantly degraded by suboptimal contrast opacificat ion of the pulmonary arteries. There is also motion artifact. CT DOSE: 827.68 mGy.cm FINDINGS: Thyroid: Enlarged and heterogeneous. Thoracic aorta: The thoracic aorta is normal in caliber and demonstrates standard 3-vessel arch anato my. No dissection is seen. Pulmonary vasculature: The pulmonary trunk is dilated, measuring 3.8 cm in diameter. This suggests pu lmonary artery hypertension. There are no filling defects identified in main or lobar branches to ind icate central pulmonary embolus. The segmental and subsegmental branches cannot evaluated due to lack of contrast opacification. Heart: The heart is enlarged and without pericardial effusion. Lungs and pleural spaces: Evaluation of the lung parenchyma is degraded by motion artifact. There are small pleural effusions with segmental atelectasis seen at the lung bases. There is a 3 cm focus of subpleural groundglass consolidation at the right apex seen on image #158. A smaller similar appearin g focus of groundglass consolidation at the right apex is seen on image #171. The trachea and central airways are clear. Mediastinum: There is no mediastinal lymphadenopathy. Dena: A mildly enlarged right hilar node measures up to 15 mm short axis. This may be reactive. No le ft hilar adenopathy is seen. Axillae: There is no axillary lymphadenopathy. Upper abdomen: A small hiatal hernia is noted. The spleen is enlarged measuring 14.9 cm in length. Th e liver appears enlarged and steatotic. There is trace perisplenic ascites. No intraperitoneal free a ir is seen below the diaphragm. Skeletal structures: No lytic or blastic bony lesions are seen. IMPRESSION: 1. Significantly suboptimal examination due to poor contrast opacification of the pulmonary arteries. There is also motion artifact. 2. There is no central pulmonary embolus within the main or lobar pulmonary vessels. The segmental an d subsegmental branches cannot be assessed. A repeat examination is recommended 3. Small pleural effusions with segmental atelectasis at both lung bases. 4. Cardiomegaly. 5. There are foci of subpleural groundglass consolidation at the right apex. These could be on an inf ectious/inflammatory basis. Small pulmonary infarcts are not excluded. 6. Splenomegaly. 7. Hepatomegaly and hepatic steatosis. 8. Additional findings as above. ACT 112: Negative or not required by law. Electronically signed by: Rigo Cobian M.D. 09/23/2023 2:04 PM
--- NOTE | 2023-09-23 22:46 | Hospitalist Progress Note ---
Date of Service September 23, 2023 Assessment & Plan (1) Postoperative hypoxia: Plan: Suspect secondary to atelectasis Agree with holding further IV fluids Incentive spirometer q1h Encourage pain medication to take deep breaths Encourage patient to be out of bed Continue to wean O2 Patient appears slightly improved on 09/23, however he continues to require intermittent oxygen. Patient is also having tachycardia in the 110s-120s. will obtain a cta chest to rule out pulmonary emboli. Central pulmonary emboli was ruled out. Admission and Anticipated Discharge Date Admission Date: September 20, 2023 Subjective Patient reports his headache and SOB has been improving. Review of Systems Review of Systems: All systems reviewed & are unremarkable except as noted in HPI & below Physical Exam Constitutional: WD/WN, vitals as above Respiratory: normal respiratory effort; no respiratory distress Auscultation: + diminished lung sounds (bibasal); no crackles, no rhonchi and no wheezes Cardiovascular: Rate/Rhythm: regular rhythm and + tachycardic Heart Sounds: no murmur Extremities: normal capillary refill; no calf tenderness and no pedal edema Gastrointestinal (Abdomen): Inspection/Auscultation: + abdomen distended Percussion/Palpation: + abdomen tender (right sided) and abdomen soft; no guarding and abdomen not rigid Musculoskeletal: no cyanosis or clubbing, extremities motor strength 5/5 Skin: no rashes, warm and dry Neurologic: moves all extremities and awake; not confused Psychiatric: A+Ox3, euthymic affect Results & Data Results & Data Vital Signs (Past 12 Hours) Vital Signs Temp Pulse Resp BP Pulse Ox O2 Del Method O2 Flow Rate 09/23/23 19:30 Nasal Cannula 1 09/23/23 19:28 37.5 C 119 H 18 134/79 94 Nasal Cannula 1 09/23/23 18:09 37.4 C 115 H 94 Nasal Cannula 1 09/23/23 16:25 37.5 C 09/23/23 15:39 38.3 C H 118 H 16 124/80 91 Nasal Cannula 1 PG Care Time/CCT Total # of Minutes Spent Total Time Spent with Patient: Total time spent is greater than 50% in coordination of care (as documented) at patient's floor/unit and/or counseling patient: Coding Level of Care Code 52363 SUB INP/OBS CARE 2/35MIN Diagnoses Postoperative hypoxia R09.02; Z98.890
[2023-09-24] MEDS: oxyCODONE HCL IR 5 MG TAB (IMMEDIATE RELEASE) PO PRN ×3 (03:37→12:35)
--- NOTE | 2023-09-24 06:04 | Electrocardiogram Report ---
Test Reason : Blood Pressure : / mmHG Vent. Rate : 117 BPM Atrial Rate : 117 BPM P-R Int : 176 ms QRS Dur : 074 ms QT Int : 302 ms P-R-T Axes : 039 -09 022 degrees QTc Int : 421 ms Sinus tachycardia Otherwise normal ECG When compared with ECG of 22-AUG-2023 09:58, Vent. rate has increased BY 39 BPM Confirmed by Edilberto Alfred ([id number]) on 09/24/2023 6:04:12 AM Referred By: Jermain Murray Confirmed By:Edilberto Alfred
[2023-09-24 06:26] LABS: Basophils # (auto) 0.05 K/uL (0.00-0.20); Basophils % (auto) 0.6 %; Eosinophils # (auto) 0.09 K/uL (0.00-0.50); Eosinophils % (auto) 1.1 %; Hematocrit (blood only) 26.9 % (42.0-52.0); Hemoglobin 8.8 g/dl (14.0-18.0); Immature Granulocytes # (auto) 0.05 K/uL (0.01-0.20); Immature Granulocytes % (auto) 0.6 %; Lymphocytes % (auto) 8.2 %; Mean Corpuscular Hemoglobin 28.2 pg (25.0-34.0); Mean Corpuscular Hgb Conc 32.7 g/dL (32.0-36.0); Mean Corpuscular Volume 86.2 fL (80.0-100.0); Mean Platelet Volume 10.8 fL (9.4-12.4); Monocytes # (auto) 0.52 K/uL (0.11-0.59); Monocytes % (auto) 6.1 %; Neutrophils # (auto) 7.12 K/uL (1.40-6.50); Neutrophils % (auto) 83.4 %; Platelet Count 200 K/uL (130-400); RDW Coefficient of Variation 12.9 % (11.5-14.5); RDW Standard Deviation 40.8 fL (36.4-46.3); Red Blood Count 3.12 M/uL (4.70-6.10); White Blood Count 8.53 K/ul (4.8-10.8)
[2023-09-24 06:55] LABS: BUN Creatinine Ratio 8.7 (10-20); Calcium 8.3 mg/dl (8.6-10.3); Est GFR (African American) 78.6 ml/min; Est GFR (Non-African American) 67.8 ml/min; Potassium 4.2 mmol/L (3.5-5.1)
[2023-09-24] MEDS: TAMSULOSIN HCL 0.4 MG CAP PO SCH (08:21)
[2023-09-24] MEDS: DOCUSATE SODIUM 100 MG CAP PO SCH (08:23)
--- NOTE | 2023-09-24 10:11 | Urology Progress Note ---
Date of Service September 24, 2023 Assessment & Plan (1) Renal mass: (2) Postoperative hypoxia: Plan: 62yo M with a right renal mass suspicious for malignancy admitted to urology service s/p robotic partial nephrectomy - POD #4 s/p Robotic Assisted Laparoscopic Right Partial Nephrectomy with Extensive lysis of adhesions with Dr. Murray. - Afebrile and hemodynamically stable, mild tachycardia. - Labs today reviewed - creatinine 1.15, WBC 8.53, Hgb stable at 8.8 - Patient w/ intermittent hypoxia requiring supplemental oxygen, likely due to atelectasis - CTA chest yesterday and central pulmonary emboli was ruled out - Hospital medicine followingappreciate recommendations - Incisions appropriate - JOSÉ removed yesterday - Patient voiding spontaneously, improved with tamsulosin - Tolerating regular diet Plan- - Wean oxygen as appropriate - Encourage OOB ambulation - Continue incentive spirometer, deep breathing, splinting for discomfort with deep breathing - Continue with Tamsulosin - Continue supportive care and pain management as needed - Plan for home later today or tomorrow if he continues to progress Admission and Anticipated Discharge Date Admission Date: September 20, 2023 Subjective Patient seen and examined at bedside this morning, chart reviewed No acute issues overnight JOSÉ removed yesterday He was on 1 L supplemental oxygen overnight Reports some discomfort near incisions, pain well-controlled with PO analgesia He is ambulating without difficulty Voiding spontaneously, improved with tamsulosin Denies nausea, vomiting, +Flatus No fever or chills Review of Systems Constitutional: as per Subjective / HPI Respiratory: as per Subjective / HPI Gastrointestinal: as per Subjective / HPI Genitourinary: + as per Subjective / HPI Physical Exam Constitutional: no acute distress Respiratory: no respiratory distress and no labored breathing supplemental oxygen in place Gastrointestinal (Abdomen): Percussion/Palpation: abdomen soft; abdomen non tender Incisions appropriate, dusty intact. Musculoskeletal: Head/Neck/Chest: normocephalic Skin: No visible rashes or lesions to exposed skin areas Neurologic: moves all extremities and awake Psychiatric: A+Ox3, euthymic affect Results & Data Vital Signs (Past 12 Hours) Vital Signs Temp Pulse Resp BP Pulse Ox O2 Del Method O2 Flow Rate 09/24/23 09:01 92 Room Air 09/24/23 08:30 Nasal Cannula 1 09/24/23 07:15 36.9 C 100 H 18 136/79 95 Room Air 09/23/23 23:44 110 H 94 Nasal Cannula 1 PG Care Time/CCT Total # of Minutes Spent Total Time Spent with Patient: Total time spent is greater than 50% in coordination of care (as documented) at patient's floor/unit and/or counseling patient: Coding Level of Care Code None Diagnoses Renal mass N28.89 Postoperative hypoxia R09.02; Z98.890
--- NOTE | 2023-09-24 14:29 | Discharge Summary ---
Date of Service September 24, 2023 Admission HPI Per Admitting Provider Patient with right renal mass suspicious for malignancy here for Robotic Assisted Laparoscopic Right Partial Nephrectomy. No changes in medical issues. No major changes in urinary issues. Continued issues and concerns. No change in pain or discomfort. No severe fevers or chills. No chest pain or shortness of breath. Risks and benefits discussed at length for procedure. These include bleeding, infection, injury to surrounding tissues or organs, and risks associated with anesthesia. Patient and/or family states understanding and agrees to proceed. Consent and supporting information completed. Admission Exam Per Admitting Provider General: Alert in no acute distress. HEENT: Inspection normal Psychologic: Normal affect. Respiratory: Nonlabored. No use of accessory muscles. Skin: [place] and Dry. No rashes or visible lesions. Abdomen: Soft, nontender Principal Diagnosis Right Renal Mass Discharge Exam Constitutional no acute distress Respiratory no respiratory distress and no labored breathing Gastrointestinal (Abdomen) Percussion/Palpation: abdomen soft; abdomen nontender Musculoskeletal Head/Neck/Chest: normocephalic Neurologic moves all extremities and awake Psychiatric A+Ox3, euthymic affect Discharge Data Allergies Allergy/AdvReac Type Severity Reaction Status Date / Time No Known Allergies Allergy Unverified 09/20/23 09:20 Consultations 09/22/23 10:33 Consult Hospitalist Routine Procedures Performed Operation Date: 09/20/23 10:50 Actual Procedures p Robotic Assisted Laparoscopic Right Partial Nephrectomy(Right) - Jermain Murray, Ordered Studies 09/23/23 13:00 CT angio chest PE protocol Routine Hospital Course (1) Renal mass: (2) Postoperative hypoxia: 62yo M with a right renal mass suspicious for malignancy admitted to urology service s/p robotic partial nephrectomy - POD #4 s/p Robotic Assisted Laparoscopic Right Partial Nephrectomy with Extensive lysis of adhesions with Dr. Murray - Afebrile and hemodynamically stable, mild tachycardia - Labs today reviewed - creatinine 1.15, WBC 8.53, Hgb stable at 8.8 - Patient w/ intermittent hypoxia requiring supplemental oxygen, likely due to atelectasis - CTA chest yesterday and central pulmonary emboli was ruled out - Hospital medicine followingappreciate recommendations - Incisions appropriate - JOSÉ removed yesterday - Patient voiding spontaneously, improved with tamsulosin - Tolerating regular diet Plan- - Wean oxygen as appropriate - Encourage OOB ambulation - Continue incentive spirometer, deep breathing, splinting for discomfort with deep breathing - Continue with Tamsulosin - Continue supportive care and pain management as needed - Plan for home later today or tomorrow if he continues to progress Patient reassessed this afternoon- Remains afebrile with stable vitals Maintaining O2 saturations between 91-94% on room air today per nursing Pain is controlled He has been ambulating and tolerating diet Patient feels ready for discharge now, at bedside Reviewed with crystal Curry for discharge to home now Discharge to home-orders placed Expected clinical course reviewed, all questions answered Follow-ups in place Total Time Total Time Spent Total Time Spent (In Minutes): 29 Discharge Plan Discharge Items Patient Disposition: Home - Self-Care Reason For Visit: POSTOP Discharge Diagnosis: Right Renal Mass; Postop Activity: Per Instructions section Lifting: No more than 25 pounds Bathing Comment: OK to shower. No tub baths or soaks. Sexual Activity: Wait until after follow-up appointment Exercise/Sports: Wait until after follow-up appointment Driving/Machine Use: Do not drive if taking prescription pain medication. Non-emergency contact: Surgeon and Urologist Call non-emergency contact if: you have any medication questions, your symptoms worsen, your pain is not controlled, you have a fever, your wound has increased redness, your wound has increased drainage and your wound pain has increased Follow-up/Referrals: Jermain Murray DO [Physician] - Pedrito Parker M.D. [Primary Care Provider] - [facility],Nurse [FAKE FOR SCHEDULES] - 09/27/23 2:20 pm Diet: Regular Addtl Attending Provider Instructions: Please take all medications as prescribed and keep all follow-ups as scheduled. Please call our office at [phone] with any questions, concerns or need to reschedule appointments for any reason. We are happy to assist you. Recommend follow-up with your PCP after discharge. Recovering at home: We recommend having someone with you for the first few days after surgery to help care for you. It is okay to shower tomorrow. Please avoid swimming, bathing or using hot tub until incisions are well healed. Avoid driving until you are not requiring pain medication any further. Walk at least a few times a day. Increase your distance, as you feel able. Stairs in your home are okay. Please avoid strenuous or sexual activity until your follow-up. We recommend using stool softener (i.e. Colace) to prevent constipation and straining, especially the first two weeks post operatively. Call [facility] at [phone] if you experience: Chest pain or trouble breathing (call 911 or go to the hospital). Fever of 101F or higher Symptoms of infection at incision site, including redness or swelling, warmth, or bad-smelling drainage Pain that is not controlled with medicines If you have catheter, and you notice: o Bloody urine or drainage that is dark red or has large clots (Please remember a small amount of blood is normal) o No drainage from the catheter for more than 6 hours o The catheter comes out of your bladder Pending Studies at Discharge: Yes (pathology) Stand-Alone Forms: My [facility] [employer], Smoking Cessation Medications and DC Order Prescriptions: New oxycodone-acetaminophen [Percocet] 5-325 mg tablet 1 tab PO Q8H PRN (Reason: pain) Qty: 10 0RF docusate sodium [Colace] 100 mg capsule 100 mg PO BID Qty: 30 0RF Rx Instructions: Take twice daily for 2 weeks, then as needed thereafter cephalexin 500 mg capsule 500 mg PO BID 5 Days Qty: 10 0RF tamsulosin 0.4 mg capsule 0.4 mg PO HS Qty: 30 2RF Discharge Orders: Discharge Order (Routine); Ordered 09/24/23 Ordered By: Ambar Gordon Admission Data Admit Date/Time: 09/20/23 17:46 Attending Provider: Jermain Murray Admit Provider: Jermain Murray Primary Care Provider: Pedrito Parker Other Providers: Ok Cuevas; Daria Grayson; Tanner Child; Patrick Eller; Alexander Ruiz; Russel Puri; Svetlana Morales; Daija Leong; Cierra Glasgow; Rudy Rice; Avel Cummins; Daria Mcelroy; Aviva Lopez; Oscar Romano; Tanner Choe; Tomer Perez; Amy Sprague; Louisa Christopher; Mal Oliveira; Xuan Nieto; Rigoberto Jefferson; Liam Garland; Otilia Long; Kailash Beltran; Clara Fontaine; Tawanna Patel; Elias Sorenson; Christie Cedeno; Patrick Finn; Alexander Roberts Other Interventions: Discharge Summary Assessment (RN) Last Done: 09/24/23 14:22 Coding Level of Care Code 86713 IN/OBS DISCH 30 MIN/LESS Diagnoses Renal mass N28.89 Postoperative hypoxia R09.02; Z98.890
--- NOTE | 2023-09-25 05:46 | Electrocardiogram Report ---
Test Reason : Blood Pressure : / mmHG Vent. Rate : 120 BPM Atrial Rate : 120 BPM P-R Int : 158 ms QRS Dur : 082 ms QT Int : 298 ms P-R-T Axes : 040 003 012 degrees QTc Int : 421 ms Sinus tachycardia Otherwise normal ECG When compared with ECG of 22-SEP-2023 10:47, No significant change was found Confirmed by Edilberto Alfred ([id number]) on 09/25/2023 5:46:40 AM Referred By: Jermain Murray Confirmed By:Edilberto Alfred
== END 2023-09-24 15:28 | disposition home or self-care (01) ==
LOC: ASU 09:03 → INTOOBSV 17:46 → 3E 17:46